=== PATIENT | male | born 1970 | race Hispanic/Latino ===

== ENCOUNTER 2020-04-01 19:04 | Emergency (ER) | payer OTHER ==
[~2020-04-01] VITALS: Ht 152.4 cm; Wt 74.8 kg
[2020-04-01] MEDS ORDERED: PREDNISONE 20 MG TAB PO ONE (19:30)
[2020-04-01] MEDS ORDERED: KETOROLAC TROMETHAMINE 30 MG/ML VIAL IM ONE (19:30)
[2020-04-01] MEDS ORDERED: ONDANSETRON HCL 4 MG ORAL DISINTEGRATING TAB PO ONE (19:30)
[2020-04-01] MEDS ORDERED: HYDROCODONE/APAP 5MG-325MG TAB PO ONE (19:30)
[2020-04-01] MEDS ORDERED: PREDNISONE50 MG PO (19:43)
[2020-04-01] MEDS ORDERED: ACETAMINOPHEN500 MG PO (19:43)
[2020-04-01] MEDS ORDERED: IBUPROFEN IB200 MG PO (19:43)
[2020-04-01] MEDS ORDERED: HYDROCODONE/APAP 5MG-325MG TAB ONE (19:49)
[2020-04-01] MEDS ORDERED: KETOROLAC TROMETHAMINE 30 MG/ML VIAL ONE (19:49)
[2020-04-01 20:50] VITALS: BP 134/92
== END 2020-04-01 20:50 | disposition home or self-care (01) ==
LOC: FSED 19:30
DX: M51.26 Other intervertebral disc displacement, lumbar region (principal); M51.27 Other intervertebral disc displacement, lumbosacral region
CPT/HCPCS: 72131; 81003; 96372; 99283; J1885; J7512; Q0162